=== PATIENT | female | born 1970 | race African-American/Black ===

== ENCOUNTER 2018-01-03 20:48 | Emergency (ER) | payer OTHER ==
--- NOTE | 2018-01-03 21:14 | PDOC ---
Rapid Medical Evaluation Time Seen by Provider: 01/03/18 21:07 Medical Evaluation: Allergies Allergy/AdvReac Type Severity Reaction Status Date / Time Sulfa (Sulfonamide Allergy Verified 01/26/16 13:28 Antibiotics) 01/03/18 21:07 I have performed a brief in-person evaluation of this patient. The patient presents with a chief complaint of: Intermittent RUE numbness over 1 month Pertinent physical exam findings: CN2-12 grossly intact. Full sensation to BUE. Photo Print Specialist 5/5. I have ordered the following: nothing The patient will proceed to the ED for further evaluation. Discharge Disposition - Diagnosis Right arm numbness - Referrals - Patient Instructions - Post Discharge Activity
[2018-01-03 21:16] VITALS: BMI 30.9
[2018-01-03] MEDS ORDERED: KETOROLAC TROMETHAMINE 60 MG/2 ML VIAL IM ONE (21:42)
[2018-01-03] MEDS ORDERED: KETOROLAC TROMETHAMINE 60 MG/2 ML VIAL ONE (21:56)
--- NOTE | 2018-01-03 22:32 | PDOC ---
History of Present Illness - General History Source: Patient Exam Limitations: No Limitations - History of Present Illness Initial Comments: 01/03/18 22:32 The patient is a 47 year old female, with a significant past medical history of hypertension, who presents to the emergency department with, approx. one month of numbness and tingling in the right upper extremity. The patient reports the numbness and tingling ranges from below the right shoulder down to her wrist but does not affect her right hand. The patient reports the right upper extremity numbness and tingling is worse in the morning after waking up and reports the right arm numbness has been interfering with her sleep. The patient reports she does a lot of repetitive motions at work with her hands. She denies recent injury or trauma. She denies recent fevers, chills, headache or dizziness. She denies recent nausea, vomit, diarrhea or constipation. She denies recent dysuria, frequency, urgency or hematuria. She denies recent chest pain or shortness of breath. Allergies: Sulfa (sulfonamide antibiotics) <Arun Estes - Last Filed: 01/03/18 22:32> <Chaya John - Last Filed: 01/03/18 23:32> - General Chief Complaint: Pain Stated Complaint: RT ARM NUMBNESS Time Seen by Provider: 01/03/18 21:07 Past History <Arun Estes - Last Filed: 01/03/18 22:32> - Past Medical History COPD: No HTN: Yes Kidney Stones: Yes - Surgical History Abdominal Surgery: Yes (SBO) - Immunization History Immunization Up to Date: Yes - Suicide/Smoking/Psychosocial Hx Smoking Status: No Smoking History: Never smoked Have you smoked in the past 12 months: No Number of Cigarettes Smoked Daily: 0 Cigars Per Day: 0 Information on smoking cessation initiated: No Hx Alcohol Use: No Drug/Substance Use Hx: No Substance Use Type: None <Chaya John - Last Filed: 01/03/18 23:32> - Past Medical History Allergies/Adverse Reactions: Allergies Allergy/AdvReac Type Severity Reaction Status Date / Time Sulfa (Sulfonamide Allergy Verified 01/03/18 21:11 Antibiotics) Home Medications: Ambulatory Orders Lamotrigine [Lamictal] 300 mg PO DAILY 01/07/14 Amlodipine Besylate [Norvasc -] 5 mg PO DAILY #30 tablet 12/26/14 Citalopram Hydrobromide [Celexa -] 20 mg PO DAILY 12/26/14 Cyclobenzaprine HCl [Flexeril 10 mg] 10 mg PO HS PRN #7 tablet 01/03/18 Ibuprofen 600 mg PO QID PRN #20 tablet 01/03/18 Lisinopril [Prinivil] 20 mg PO DAILY 01/03/18 Review of Systems - Review of Systems Comments:: 01/03/18 22:33 CONSTITUTIONAL: Absent: fever, no chills, no fatigue EYES: Absent: visual changes ENT: Absent: ear pain, no sore throat CARDIOVASCULAR: Absent: chest pain, no palpitations RESPIRATORY: Absent: cough, no SOB GI: Absent: abdominal pain, no nausea, no vomiting, no constipation, no diarrhea GENITOURINARY: Absent: dysuria, no frequency, no hematuria MUSKULOSKELETAL: Absent: back pain, no arthralgia, no myalgia SKIN: Absent: rash NEURO: Present: +Right arm numbness and tingling. Absent: headache <Arun Estes - [place] Filed: 01/03/18 22:32> *Physical Exam - Vital Signs Last Vital Signs Temp Pulse Resp BP Pulse Ox 98.4 F 72 20 144/111 100 01/03/18 21:11 01/03/18 21:11 01/03/18 21:11 01/03/18 21:11 01/03/18 21:11 - Physical Exam Comments: 01/03/18 22:33 GENERAL: Well-appearing, well-nourished. No apparent distress. HEENT: Normocephalic, atraumatic. PERRL, EOM intact. CARDIOVASCULAR: Normal S1, S2. Regular rate and rhythm. PULMONARY: Clear to auscultation bilaterally. ABDOMEN: Soft, non-distended, non-tender. EXTREMITIES: +Tenderness to the right trapezius muscle area. Normal ROM in all four extremities. No gross deformities. SKIN: Warm, dry. No rash NEUROLOGICAL: No focal neurological deficits. <Arun Estes - Last Filed: 01/03/18 22:32> - Vital Signs Last Vital Signs Temp Pulse Resp BP Pulse Ox 98.4 F 72 20 144/111 100 01/03/18 21:11 01/03/18 21:11 01/03/18 21:11 01/03/18 21:11 01/03/18 21:11 <Chaya John - Last Filed: 01/03/18 23:32> ED Treatment Course - Medications Given in the ED: ED Medications Discontinued Medications Generic Name Dose Route Start Last Admin Trade Name Freq PRN Reason Stop Dose Admin Ketorolac Tromethamine 60 mg 01/03/18 21:42 01/03/18 21:59 Toradol Injection - IM 01/03/18 21:43 60 mg ONCE ONE Administration <Arun Estes - Last Filed: 01/03/18 22:32> - Medications Given in the ED: ED Medications Discontinued Medications Generic Name Dose Route Start Last Admin Trade Name Freq PRN Reason Stop Dose Admin Ketorolac Tromethamine 60 mg 01/03/18 21:42 01/03/18 21:59 Toradol Injection - IM 01/03/18 21:43 60 mg ONCE ONE Administration <Chaya John - Last Filed: 01/03/18 23:32> Medical Decision Making - Medical Decision Making 01/03/18 23:29 47-year-old female presents with intermittent numbness, tingling and arm pain for approximately 1 month. Associate worse with certain positions. She denies any recent trauma. She denies any chest pain, shortness of breath, nausea, vomiting, fever or chills. The tingling that she experiences is from the mid shaft of the ulna down to her forearm. She has no hand involvement. Objectively, her sensation is intact, 2. proprioception intact, cap refill less than 2 seconds, hand grasp 5 out of 5. She is able to fully extend her right arm, she has no elbow pain, and she has no wrist pain. Symptoms seem to be worse when she wakes in the morning. Patient given NSAID and referred to orthopedic <Chaya John - Last Filed: 01/03/18 23:32> *DC/Admit/Observation/Transfer - Attestations Scribe Attestion: 01/03/18 22:34 Documentation prepared by Arun Estes, acting as medical cost consultant for Chaya John MD. <Arun Estes - Last Filed: 01/03/18 22:32> <Chaya John - Last Filed: 01/03/18 23:32> Diagnosis at time of Disposition: Right arm numbness, Right arm pain - Discharge Dispostion Disposition: HOME Condition at time of disposition: Stable - Prescriptions Prescriptions: Cyclobenzaprine HCl [Flexeril 10 mg] 10 mg PO HS PRN #7 tablet PRN Reason: Muscle Spasms Ibuprofen 600 mg PO QID PRN #20 tablet PRN Reason: Pain Level 6-10 - Referrals Referrals: Rosanne Deng MD [Primary Care Provider] - Juan C Mcnair MD [Staff Physician] - Deshawn Grace MD [Staff Physician] - Homer Hernandez MD [Staff Physician] - - Patient Instructions Printed Discharge Instructions: DI for Arm Pain, DI for Numbness/tingling Additional Instructions: please pickler helper your medications at your [facility] pharmacy please follow up with the orthopedist return for any worsening symptoms - Post Discharge Activity
[2018-01-03 23:09] VITALS: BP 154/95; PULSE 69; TEMP 98.1
[2018-01-03] MEDS ORDERED: CYCLOBENZAPRINE HCL 10 MG TABLET (FP) PO ONE (23:25)
[2018-01-03] MEDS ORDERED: CYCLOBENZAPRINE HCL 10 MG TABLET (FP) ONE (23:27)
== END 2018-01-03 23:33 | disposition home or self-care (01) ==
LOC: JER 20:48
PROC: 3E0233Z Introduction of Anti-inflammatory into Muscle, Percutaneous Approach (ICD-10-PCS; principal; 2018-01-03)
DX: M79.601 Pain in right arm (principal)
CPT/HCPCS: 99282-25

== ENCOUNTER 2018-08-17 01:12 | Emergency (ER) | payer OTHER ==
[2018-08-17 03:06] VITALS: BMI 31.9
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
[2018-08-17] MEDS ORDERED: ACETAMINOPHEN 325 MG TABLET (FP) PO ONE (07:09)
[2018-08-17] MEDS ORDERED: ACETAMINOPHEN 325 MG TABLET (FP) ONE (08:00)
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
[2018-08-17 09:26] VITALS: BP 142/99; PULSE 71; TEMP 98.1
== END 2018-08-17 09:27 | disposition home or self-care (01) ==
LOC: JER 01:12
DX: G44.319 Acute post-traumatic headache, not intractable (principal); S00.83XA Contusion of other part of head, initial encounter; Y04.2XXA Assault by strike against or bumped into by another person, initial encounter; Y93.89 Activity, other specified; Y92.810 Car as the place of occurrence of the external cause; Y99.8 Other external cause status; Y07.03 Male partner, perpetrator of maltreatment and neglect
CPT/HCPCS: 70450-TC; 70486-TC; 84703; 99281-25

== ENCOUNTER 2018-08-24 19:05 | Emergency (ER) | payer OTHER ==
[2018-08-24 19:46] VITALS: BP 145/84; PULSE 73; TEMP 98.5; BMI 31.6
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
--- NOTE | 2018-08-24 20:12 | PDOC ---
History of Present Illness - General Chief Complaint: Eye Problem Stated Complaint: EYE PROBLEM Time Seen by Provider: 08/24/18 19:44 History Source: Patient Exam Limitations: No Limitations - History of Present Illness Initial Comments: 08/24/18 20:07 08/24/18 20:12 Past History - Past Medical History Allergies/Adverse Reactions: Allergies Allergy/AdvReac Type Severity Reaction Status Date / Time Sulfa (Sulfonamide Allergy Verified 08/24/18 19:46 Antibiotics) Home Medications: Ambulatory Orders Lamotrigine [Lamictal] 300 mg PO DAILY 01/07/14 Amlodipine Besylate [Norvasc -] 5 mg PO DAILY #30 tablet 12/26/14 Citalopram Hydrobromide [Celexa -] 20 mg PO DAILY 12/26/14 Cyclobenzaprine HCl [Flexeril 10 mg] 10 mg PO HS PRN #7 tablet 01/03/18 Ibuprofen 600 mg PO QID PRN #20 tablet 01/03/18 Lisinopril [Prinivil] 20 mg PO DAILY 01/03/18 COPD: No HTN: Yes Kidney Stones: Yes - Surgical History Abdominal Surgery: Yes (SBO) - Immunization History Immunization Up to Date: Yes - Suicide/Smoking/Psychosocial Hx Smoking Status: No Smoking History: Never smoked Have you smoked in the past 12 months: No Number of Cigarettes Smoked Daily: 0 Cigars Per Day: 0 Hx Alcohol Use: No Drug/Substance Use Hx: No Substance Use Type: None *Physical Exam - Vital Signs Last Vital Signs Temp Pulse Resp BP Pulse Ox 98.5 F 73 18 145/84 99 08/24/18 19:44 08/24/18 19:44 08/24/18 19:44 08/24/18 19:44 08/24/18 19:44 Medical Decision Making - Medical Decision Making 08/24/18 20:08 08/24/18 20:11 *DC/Admit/Observation/Transfer Diagnosis at time of Disposition: Red eye - Referrals Referrals: Rosanne Deng MD [Primary Care Provider] - - Patient Instructions - Post Discharge Activity
[2018-08-24] MEDS ORDERED: TETRACAINE 0.5% OPHTH SOLN 2 ML BOTTLE ONE (20:38)
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
== END 2018-08-24 20:58 | disposition home or self-care (01) ==
LOC: JERFT 19:05
DX: S05.8X1A Other injuries of right eye and orbit, initial encounter (principal); I10 Essential (primary) hypertension; Y04.2XXA Assault by strike against or bumped into by another person, initial encounter; Y93.89 Activity, other specified; Y92.89 Other specified places as the place of occurrence of the external cause; Y99.8 Other external cause status
CPT/HCPCS: 99281-25

== ENCOUNTER 2018-12-08 14:37 | Emergency (ER) | payer OTHER ==
[2018-12-08 14:58] VITALS: BP 150/98; PULSE 82; TEMP 98.3; BMI 33.3
[2018-12-08] MEDS ORDERED: ALBUTEROL SO4 2.5/IPRATROPIUM 0.5 INH SOL 3 ML VIAL.NEB. NEB ONE ×2 (15:12→15:21)
--- NOTE | 2018-12-08 15:17 | PDOC ---
History of Present Illness - General Chief Complaint: Cold Symptoms Stated Complaint: CHEST PAIN Time Seen by Provider: 12/08/18 15:00 History Source: Patient Exam Limitations: Clinical Condition - History of Present Illness Initial Comments: 12/08/18 15:13 Patient with history of hypertension patient with history of hypertension present with complaint of 2 weeks history of persistent dry cough, nasal congestion and intermittent shortness of breath. Patient reported sister with diagnoses of pneumonia 3 days ago.Patient report smoking one pack of cigarettes a day and wishes to stop smoking. Patient denies fever, chills or shortness of breath now. Patient denies chest pain, dizziness, nausea or vomiting. Patient denies any other symptoms 12/08/18 15:44 Timing/Duration: other (2 weeka) Past History - Past Medical History Allergies/Adverse Reactions: Allergies Allergy/AdvReac Type Severity Reaction Status Date / Time Sulfa (Sulfonamide Allergy Verified 12/08/18 14:56 Antibiotics) Home Medications: Ambulatory Orders Lamotrigine [Lamictal] 300 mg PO DAILY 01/07/14 Amlodipine Besylate [Norvasc -] 5 mg PO DAILY #30 tablet 12/26/14 Citalopram Hydrobromide [Celexa -] 20 mg PO DAILY 12/26/14 Lisinopril [Prinivil] 20 mg PO DAILY 01/03/18 Albuterol Sulfate Inhaler - [Ventolin Hfa Inhaler -] 2 inh PO Q4H #1 inh Azithromycin [Zithromax 250mg Tablets -] 250 mg PO UTDICT #6 tab 12/08/18 Benzonatate [Tessalon Pearls -] 100 mg PO TID PRN #21 capsule 12/08/18 Loratadine 10 mg PO DAILY #10 capsule 12/08/18 Prednisone [Deltasone] 20 mg PO BID 5 Days #10 tablet 12/08/18 Varenicline Tartrate [Chantix] 1 each PO BID #2 tab.ds.pk 12/08/18 COPD: No HTN: Yes Kidney Stones: Yes - Surgical History Abdominal Surgery: Yes (SBO) - Immunization History Immunization Up to Date: Yes - Suicide/Smoking/Psychosocial Hx Smoking Status: No Smoking History: Current every day smoker Have you smoked in the past 12 months: No Number of Cigarettes Smoked Daily: 0 Cigars Per Day: 0 Information on smoking cessation initiated: No Hx Alcohol Use: No Drug/Substance Use Hx: No Substance Use Type: None Review of Systems - Review of Systems Able to Perform ROS?: Yes Is the patient limited Haitian proficient: No Constitutional: No: Chills, Fever, Malaise HEENTM: Yes: Symptoms Reported, See HPI, Nose Congestion. No: Eye Pain, Blurred Vision, Tearing, Recent change in vision, Double Vision, Cataracts, Ear Pain, Ocular Prothesis, Ear Discharge, Nose Pain, Tinnitus, Nose Bleeding, Hearing Loss, Throat Pain, Throat Swelling, Mouth Pain, Dental Problems, Difficulty Swallowing, Mouth Swelling, Other Respiratory: Yes: Symptoms reported, See HPI, Cough, Shortness of Breath ( intermittent), Wheezing. No: Orthopnea, SOB with Exertion, SOB at Rest, Stridor , Productive cough, Hemoptysis, Other Cardiac (ROS): No: Symptoms Reported, See HPI, Chest Pain, Edema, Irregular Heart Rate, Lightheadedness, Palpitations, Syncope, Chest Tightness, Other ABD/GI: No: Nausea, Vomiting All Other Systems: Reviewed and Negative *Physical Exam - Vital Signs Last Vital Signs Temp Pulse Resp BP Pulse Ox 98.3 F 82 16 150/98 99 12/08/18 14:56 12/08/18 14:56 12/08/18 14:56 12/08/18 14:56 12/08/18 14:56 - Physical Exam Comments: 12/08/18 15:15 GENERAL: Well developed, well nourished. Awake and alert. No acute distress. HEENT: Normocephalic, atraumatic. PERRLA, EOMI. No conjunctival pallor. Sclera are non-icteric. Moist mucous membranes. Oropharynx is clear. NECK: Supple. Full ROM. CARDIOVASCULAR: Regular rate and rhythm. No murmurs, rubs, or gallops. Distal pulses are 2+ and symmetric. PULMONARY: Mild diffuse wheezing.No evidence of respiratory distress. No rales or rhonchi. ABDOMINAL: Soft. Non-tender. Non-distended. No rebound or guarding. No organomegaly. Normoactive bowel sounds. MUSCULOSKELETAL Normal range of motion at all joints. EXTREMITIES: No cyanosis. No clubbing. SKIN: Warm and dry. Normal capillary refill. No rashes. No jaundice. NEUROLOGICAL: Alert, awake, appropriate. Gait is normal without ataxia. PSYCHIATRIC: Cooperative. Good eye contact. Appropriate mood General Appearance: Yes: Nourished, Appropriately Dressed. No: Apparent Distress Moderate Sedation - Procedure Monitoring Vital Signs: Procedure Monitoring Vital Signs Temperature 98.3 F 12/08/18 14:56 Pulse Rate 82 12/08/18 14:56 Respiratory Rate 16 12/08/18 14:56 Blood Pressure 150/98 12/08/18 14:56 O2 Sat by Pulse Oximetry (%) 99 12/08/18 14:56 ED Treatment Course - RADIOLOGY Radiology Studies Ordered: Category Date Time Status CHEST PA & LAT [RAD] Stat Radiology 12/08/18 15:06 Ordered Medical Decision Making - Medical Decision Making 12/08/18 15:15 Patient with history of hypertension present with complaint of 2 weeks history of persistent nonproductive cough, nasal congestion and intermittent shortness of breath. Patient reported exposure to sibling with pneumonia. Exam significant for mild diffuse wheezing with no acute respiratory distress . No rales or rhonchi on exam. Chest x-ray ordered to rule out pneumonia. Nebulizer treatment with Atrovent and albuterol ordered. Treat based on imaging results 12/08/18 15:44 Chest x-ray shows no acute infiltrate. Patient is stable for outpatient treatment for bronchitis and prescription for Chantix to help with smoking cessation. Patient educated on smoking cessation for 5 minutes. Patient to follow-up with primary care to continue smoking cessation. *DC/Admit/Observation/Transfer Diagnosis at time of Disposition: Bronchitis, Cough URI (upper respiratory infection) Qualifiers: URI type: unspecified URI Qualified Code(s): J06.9 - Acute upper respiratory infection, unspecified Nicotine dependence Qualifiers: Nicotine product type: cigarettes Substance use status: uncomplicated Qualified Code(s): F17.210 - Nicotine dependence, cigarettes, uncomplicated - Discharge Dispostion Disposition: HOME Condition at time of disposition: Stable Decision to Admit order: No - Prescriptions Prescriptions: Albuterol Sulfate Inhaler - [Ventolin Hfa Inhaler -] 2 inh PO Q4H #1 inh Azithromycin [Zithromax 250mg Tablets -] 250 mg PO UTDICT #6 tab Benzonatate [Tessalon Pearls -] 100 mg PO TID PRN #21 capsule PRN Reason: Cough Loratadine 10 mg PO DAILY #10 capsule Prednisone [Deltasone] 20 mg PO BID 5 Days #10 tablet Varenicline Tartrate [Chantix] 1 each PO BID #2 tab.ds.pk - Referrals Referrals: Rosanne Deng MD [Primary Care Provider] - - Patient Instructions Printed Discharge Instructions: DI for Acute Bronchitis Additional Instructions: Your chest x-ray shows no pneumonia. Take medications as prescribed. Follow-up with primary care for smoking cessation follow-up. - Post Discharge Activity
== END 2018-12-08 15:46 | disposition home or self-care (01) ==
LOC: JERFT 14:37
PROC: 3E0F7GC Introduction of Other Therapeutic Substance into Respiratory Tract, Via Natural or Artificial Opening (ICD-10-PCS; principal; 2018-12-08)
DX: J06.9 Acute upper respiratory infection, unspecified (principal); F17.210 Nicotine dependence, cigarettes, uncomplicated
CPT/HCPCS: 71046-TC-FY; 94640; 99281-25

== ENCOUNTER 2019-05-08 20:09 | Emergency (ER) | payer OTHER | END 2019-05-08 21:35 | disposition home or self-care (01) | LOC: JERFT 20:09 ==

== ENCOUNTER 2022-03-26 10:28 | Emergency (ER) | payer OTHER ==
[2022-03-26 10:43] VITALS: BP 100/64; PULSE 64; TEMP 97.3; BMI 29.5
[2022-03-28 14:07] LABS: SARS-CoV-2 NAA Detected (Not Detected)
== END 2022-03-26 12:30 | disposition home or self-care (01) ==
LOC: JER 10:28
DX: U07.1 COVID-19 (principal)
CPT/HCPCS: 99283-25; C9803-CS; U0003; U0005

== ENCOUNTER 2022-04-22 17:11 | Emergency (ER) | payer OTHER ==
[2022-04-22 17:30] VITALS: BP 133/89; PULSE 79; TEMP 99.1; BMI 29.8
== END 2022-04-22 18:50 | disposition home or self-care (01) ==
LOC: JER 17:11
DX: R05.9 Cough, unspecified (principal); R09.81 Nasal congestion
CPT/HCPCS: 0241U-QW; 99283-25

== ENCOUNTER 2022-08-10 10:58 | Emergency (ER) | payer OTHER ==
[2022-08-10 11:04] VITALS: BP 135/84; PULSE 61; RESP 16; TEMP 97.7; BMI 27.1
[2022-08-10] MEDS ORDERED: ONDANSETRON 4 MG/2 ML VIAL IVPUSH ONE (12:02)
[2022-08-10] MEDS ORDERED: SODIUM CHLORIDE 0.9% 500 ML INFUS.BAG IV ONE (12:02)
[2022-08-10] MEDS ORDERED: KETOROLAC TROMETHAMINE 30 MG/1 ML VIAL IVPUSH ONE (12:02)
[2022-08-10] MEDS ORDERED: ACETAMINOPHEN 1000 MG/100 ML BAG IVPB ONE (12:59)
[2022-08-10 13:17] LABS: BASO % 0.3 % (0-2.0); EOS % 3.7 % (0-4.5); HEMATOCRIT 43.9 % (32.4-45.2); HEMOGLOBIN 14.2 GM/dL (10.7-15.3); MCH 29.8 pg (25.7-33.7); MCHC 32.4 g/dl (32.0-36.0); MEAN CELL VOLUME 92.2 fl (80-96); MEAN PLT VOLUME 7.3 fl (7.5-11.1); MONO % 7.2 % (3.8-10.2); NEUT % 65.8 % (42.8-82.8); PLATELET COUNT 340 10^3/uL (134-434); RBC 4.76 M/mm3 (3.60-5.2); RDW 14.4 % (11.6-15.6); WHITE BLOOD COUNT 7.9 K/mm3 (4.0-10.0)
[2022-08-10 13:29] LABS: ALBUMIN 3.7 g/dl (3.4-5.0); BLOOD UREA NITROGEN 3.5 mg/dL (7-18); CALCIUM 10.7 mg/dL (8.5-10.1)
[2022-08-10 13:33] LABS: CREATININE 0.8 mg/dL (0.55-1.3); TOT PROT 7.5 g/dl (6.4-8.2)
[2022-08-10 13:34] LABS: BILIRUBIN,TOTAL 0.7 mg/dL (0.2-1)
== END 2022-08-10 15:46 | disposition left against medical advice (07) ==
LOC: JER 10:58
DX: K81.0 Acute cholecystitis (principal)
CPT/HCPCS: 0241U-QW; 36415; 76705-TC; 80053; 83690; 84703; 85025; 99284-25

== ENCOUNTER 2022-08-10 21:19 | Observation (INO) | payer OTHER ==
[2022-08-10 21:34] VITALS: BMI 26.6
[2022-08-10] MEDS ORDERED: KETOROLAC TROMETHAMINE 30 MG/1 ML VIAL IVPUSH ONE (23:11)
[2022-08-10] MEDS ORDERED: POTASSIUM CHLORIDE 10 MEQ in SODIUM CHLORIDE 1,000 ML IVPB SCH (23:15)
[2022-08-10] MEDS ORDERED: SODIUM CHLORIDE 1,000 ML IV SCH (23:15)
[2022-08-11] MEDS ORDERED: KETOROLAC TROMETHAMINE 30 MG/1 ML VIAL ONE ×2 (00:07→00:08)
[2022-08-11] MEDS ORDERED: ACETAMINOPHEN 1000 MG/100 ML BAG IVPB PRN (01:25)
[2022-08-11] MEDS ORDERED: LITHIUM CARBONATE 300 MG CAPSULE PO SCH ×4 (01:30→22:00)
[2022-08-11] MEDS ORDERED: hydrALAZINE HCL 20 MG/ML VIAL IVPUSH ONE (01:32)
[2022-08-11] MEDS ORDERED: SODIUM CHLORIDE 1,000 ML IV SCH (01:45)
[2022-08-11] MEDS ORDERED: hydrALAZINE HCL 20 MG/ML VIAL ONE (03:24)
[2022-08-11] MEDS ORDERED: TRIMETHOBENZAMIDE HCL 200MG/2ML INJ IM PRN ×2 (03:39→14:01)
[2022-08-11] MEDS ORDERED: MELATONIN 5 MG TABLETS PO PRN ×2 (03:39→14:01)
[2022-08-11 07:08] LABS: BASO % 0.4 % (0-2.0); EOS % 4.5 % (0-4.5); HEMATOCRIT 38.7 % (32.4-45.2); HEMOGLOBIN 12.9 GM/dL (10.7-15.3); LYMPH % 34.9 % (8-40); MCH 30.6 pg (25.7-33.7); MCHC 33.3 g/dl (32.0-36.0); NEUT % 51.2 % (42.8-82.8); PLATELET COUNT 295 10^3/uL (134-434); RDW 14.5 % (11.6-15.6); WHITE BLOOD COUNT 6.5 K/mm3 (4.0-10.0)
[2022-08-11 07:18] LABS: BLOOD UREA NITROGEN 3.1 mg/dL (7-18); CALCIUM 9.6 mg/dL (8.5-10.1)
[2022-08-11 07:19] LABS: ALBUMIN 3.1 g/dl (3.4-5.0); MAGNESIUM 2.3 mg/dL (1.8-2.4)
[2022-08-11 07:22] LABS: CREATININE 0.7 mg/dL (0.55-1.3); PHOSPHOROUS 2.9 mg/dL (2.5-4.9)
[2022-08-11 07:23] LABS: BILIRUBIN,TOTAL 0.5 mg/dL (0.2-1); TOT PROT 6.2 g/dl (6.4-8.2)
[2022-08-11] MEDS ORDERED: LISINOPRIL 20 MG TABLET ONE (09:43)
[2022-08-11] MEDS ORDERED: amLODIPine BESYLATE 10 MG TABLET (FP) ONE (09:43)
[2022-08-11] MEDS ORDERED: amLODIPine BESYLATE 10 MG TABLET (FP) PO SCH (10:00)
[2022-08-11] MEDS ORDERED: LISINOPRIL 20 MG TABLET PO SCH (10:00)
[2022-08-11] MEDS ORDERED: lamoTRIgine 100 MG TABLET PO SCH (10:00)
[2022-08-11] MEDS ORDERED: VARENICLINE TARTRATE 1 MG TAB PO SCH ×2 (10:00)
[2022-08-11] MEDS ORDERED: lamoTRIgine 25 MG TABLET ONE (10:34)
[2022-08-11] MEDS ORDERED: lamoTRIgine 100 MG TABLET ONE (10:34)
[2022-08-11] MEDS ORDERED: LIDOCAINE HCL 1%, 10 MG/ML (20ML VIAL) ONE (10:55)
[2022-08-11] MEDS ORDERED: BUPIVACAINE HCL/PF 0.5% (5MG/ML) 10 ML VIAL ONE (10:55)
[2022-08-11] MEDS ORDERED: ROCURONIUM BROMIDE 50 MG/5 ML SYRINGE ONE (11:32)
[2022-08-11] MEDS ORDERED: PROPOFOL 20 ML ONE (11:32)
[2022-08-11] MEDS ORDERED: LIDOCAINE HCL 2% 100 MG/5 ML DISP.SYRIN ONE (11:32)
[2022-08-11] MEDS ORDERED: SUCCINYLCHOLINE CHLORIDE 200 MG/10 ML SYRINGE ONE (11:32)
[2022-08-11] MEDS ORDERED: MIDAZOLAM HCL 2 MG/2 ML SINGLE DOSE VIAL ONE (11:33)
[2022-08-11] MEDS ORDERED: ceFAZolin SODIUM 1 GM VIAL ONE (11:52)
[2022-08-11] MEDS ORDERED: DEXAMETHASONE SOD PHOSPHATE 4 MG/1 ML VIAL ONE (11:52)
[2022-08-11] MEDS ORDERED: ceFAZolin SODIUM 1 GM VIAL IVPB ONE (11:55)
[2022-08-11] MEDS ORDERED: BUPIVACAINE HCL/PF 0.5% (5MG/ML) 10 ML VIAL NR ONE ×2 (12:10)
[2022-08-11] MEDS ORDERED: LIDOCAINE HCL 1%, 10 MG/ML (20ML VIAL) NR ONE (12:10)
[2022-08-11] MEDS ORDERED: NEOSTIGMINE METHYLSULFATE 0.5 MG/ML - 10 ML MDV ONE (12:45)
[2022-08-11] MEDS ORDERED: GLYCOPYRROLATE 0.2 MG/1 ML VIAL ONE ×2 (12:45)
[2022-08-11] MEDS ORDERED: ACETAMINOPHEN 1000 MG/100 ML BAG IVPB ONE (13:23)
[2022-08-11] MEDS ORDERED: PROMETHAZINE HCL 25 MG/1 ML VIAL IVPUSH PRN (13:23)
[2022-08-11] MEDS ORDERED: LACTATED RINGERS SOLUTION 1,000 ML IV SCH ×2 (13:30→14:01)
[2022-08-11] MEDS ORDERED: ACETAMINOPHEN INJECTION 100 ML IVPB ONE (13:36)
[2022-08-11] MEDS ORDERED: oxyCODONE HCL 5 MG TABLET PO PRN (13:53)
[2022-08-11] MEDS ORDERED: FLUTICASONE PROP 0.05% 16 GM NASAL SPRAY NS PRN (15:52)
[2022-08-11] MEDS ORDERED: KETOROLAC TROMETHAMINE 15 MG/ML VIAL IVPUSH PRN (20:00)
[2022-08-11] MEDS: ACETAMINOPHEN 500 MG TABLET (FP) PO SCH (21:20)
[2022-08-11] MEDS ORDERED: LITHIUM CARBONATE 450 MG TABLET.ER PO SCH (22:00)
[2022-08-11] MEDS: oxyCODONE HCL 5 MG TABLET PO PRN (22:17)
[2022-08-12] MEDS: ACETAMINOPHEN 500 MG TABLET (FP) PO SCH ×2 (01:16→06:38)
[2022-08-12] MEDS: oxyCODONE HCL 5 MG TABLET PO PRN (05:03)
[2022-08-12 08:04] VITALS: PULSE 52
[2022-08-12 09:59] LABS: BASO % 0.2 % (0-2.0); EOS % 0.4 % (0-4.5); HEMATOCRIT 38.4 % (32.4-45.2); HEMOGLOBIN 12.5 GM/dL (10.7-15.3); LYMPH % 19.6 % (8-40); MCH 29.8 pg (25.7-33.7); MCHC 32.5 g/dl (32.0-36.0); MEAN CELL VOLUME 91.7 fl (80-96); MEAN PLT VOLUME 7.3 fl (7.5-11.1); MONO % 6.1 % (3.8-10.2); NEUT % 73.7 % (42.8-82.8); PLATELET COUNT 300 10^3/uL (134-434); RBC 4.18 M/mm3 (3.60-5.2); RDW 14.1 % (11.6-15.6); WHITE BLOOD COUNT 10.6 K/mm3 (4.0-10.0)
[2022-08-12] MEDS ORDERED: VARENICLINE TARTRATE 1 MG TAB PO SCH (10:00)
[2022-08-12] MEDS ORDERED: LISINOPRIL 20 MG TABLET PO SCH (10:00)
[2022-08-12] MEDS ORDERED: CITALOPRAM HYDROBROMIDE 10 MG TABLET PO SCH (10:00)
[2022-08-12] MEDS ORDERED: lamoTRIgine 100 MG TABLET PO SCH (10:00)
[2022-08-12] MEDS ORDERED: traZODone HCL 100 MG TABLET (FP) PO SCH (10:00)
[2022-08-12] MEDS ORDERED: amLODIPine BESYLATE 10 MG TABLET (FP) PO SCH (10:00)
[2022-08-12] MEDS ORDERED: LITHIUM CARBONATE 300 MG CAPSULE PO SCH (10:00)
[2022-08-12 12:08] LABS: MAGNESIUM 2.1 mg/dL (1.8-2.4)
[2022-08-12 12:13] LABS: ALBUMIN 3.2 g/dl (3.4-5.0)
[2022-08-12 12:15] LABS: TOT PROT 6.5 g/dl (6.4-8.2)
[2022-08-12 12:18] LABS: BLOOD UREA NITROGEN 5.6 mg/dL (7-18)
[2022-08-12 12:21] LABS: BILIRUBIN,DIRECT 0.2 mg/dL (0.0-0.2); PHOSPHOROUS 3.9 mg/dL (2.5-4.9)
[2022-08-12 12:22] LABS: BILIRUBIN,TOTAL 0.9 mg/dL (0.2-1)
[2022-08-12 12:36] VITALS: BP 134/96; RESP 18; TEMP 98.1
== END 2022-08-12 17:07 | disposition home or self-care (01) ==
LOC: JER 21:19 → JERBED 22:34 → J5S 08-11 16:38
PROVIDERS: ADMIT Internal Medicine; ATTEND Internal Medicine
PROC: 0FT44ZZ Resection of Gallbladder, Percutaneous Endoscopic Approach (ICD-10-PCS; principal; 2022-08-10)
PROC: 3E03329 Introduction of Other Anti-infective into Peripheral Vein, Percutaneous Approach (ICD-10-PCS; 2022-08-10)
PROC: 3E033NZ Introduction of Analgesics, Hypnotics, Sedatives into Peripheral Vein, Percutaneous Approach (ICD-10-PCS; 2022-08-10)
PROC: 3E033NZ Introduction of Analgesics, Hypnotics, Sedatives into Peripheral Vein, Percutaneous Approach (ICD-10-PCS; 2022-08-10)
PROC: 3E0337Z Introduction of Electrolytic and Water Balance Substance into Peripheral Vein, Percutaneous Approach (ICD-10-PCS; 2022-08-10)
DX: K80.20 Calculus of gallbladder without cholecystitis without obstruction (principal); F31.9 Bipolar disorder, unspecified; D25.9 Leiomyoma of uterus, unspecified; I10 Essential (primary) hypertension; Z88.2 Allergy status to sulfonamides; Z88.8 Allergy status to other drugs, medicaments and biological substances; F17.210 Nicotine dependence, cigarettes, uncomplicated
CPT/HCPCS: 36415; 74177-TC; 80053; 80076; 83735; 84100; 84439; 84443; 85025; 86140; 86850; 86900; 86901; 87086; 88304-TC; 93005; 93010; 94760; 96361; 96374; 96375; 99285-25; C9803-CS; G0378; Q9967; U0003; U0005

== ENCOUNTER 2022-08-31 04:57 | Day surgery (SDC) | payer OTHER ==
[2022-08-30 12:05] VITALS: BMI 26.6
[2022-08-31] MEDS ORDERED: MIDAZOLAM HCL 2 MG/2 ML SINGLE DOSE VIAL ONE (10:30)
[2022-08-31 11:39] VITALS: BP 105/60; PULSE 56; RESP 19; TEMP 98
== END 2022-08-31 12:14 | disposition home or self-care (01) ==
LOC: JASU-ENDO 04:57
PROVIDERS: ATTEND Student in an Organized Health Care Education/Training Program
PROC: 0DB78ZX Excision of Stomach, Pylorus, Via Natural or Artificial Opening Endoscopic, Diagnostic (ICD-10-PCS; 2022-08-31)
PROC: 0DB68ZX Excision of Stomach, Via Natural or Artificial Opening Endoscopic, Diagnostic (ICD-10-PCS; 2022-08-31)
PROC: 0DB98ZX Excision of Duodenum, Via Natural or Artificial Opening Endoscopic, Diagnostic (ICD-10-PCS; principal; 2022-08-31 10:00)
DX: K29.50 Unspecified chronic gastritis without bleeding (principal); B96.81 Helicobacter pylori [H. pylori] as the cause of diseases classified elsewhere; K29.80 Duodenitis without bleeding; K20.90 Esophagitis, unspecified without bleeding
CPT/HCPCS: 88305-TC; 88342-TC

== ENCOUNTER 2022-12-14 14:47 | Emergency (ER) | payer OTHER ==
[2022-12-14 15:04] VITALS: BP 156/90; PULSE 64; RESP 20; TEMP 98.4; BMI 25.7
[2022-12-14] MEDS ORDERED: ACETAMINOPHEN 500 MG TABLET (FP) PO ONE (15:23)
[2022-12-14] MEDS ORDERED: ACETAMINOPHEN 500 MG TABLET (FP) ONE (15:30)
== END 2022-12-14 16:19 | disposition home or self-care (01) ==
LOC: JERFT 14:47
DX: M25.551 Pain in right hip (principal)
CPT/HCPCS: 73521-TC-FY; 99283-25

== ENCOUNTER 2022-12-28 11:08 | Emergency (ER) | payer OTHER ==
[2022-12-28 11:17] VITALS: BP 146/85; PULSE 69; RESP 19; TEMP 97.8; BMI 25.7
[2022-12-28] MEDS ORDERED: KETOROLAC TROMETHAMINE 30 MG/1 ML VIAL IM ONE (12:09)
[2022-12-28] MEDS ORDERED: KETOROLAC TROMETHAMINE 30 MG/1 ML VIAL ONE (12:11)
== END 2022-12-28 12:21 | disposition home or self-care (01) ==
LOC: JERFT 11:08
PROC: 3E0233Z Introduction of Anti-inflammatory into Muscle, Percutaneous Approach (ICD-10-PCS; principal; 2022-12-28)
DX: M62.830 Muscle spasm of back (principal)
CPT/HCPCS: 99284-25

== ENCOUNTER 2023-07-19 13:04 | Emergency (ER) | payer BC, OTHER ==
[2023-07-19 13:15] VITALS: BP 111/77; PULSE 77; RESP 16; TEMP 98.7; BMI 26.2
[2023-07-19] MEDS ORDERED: ACETAMINOPHEN 325 MG TABLET (FP) PO ONE (14:29)
== END 2023-07-19 15:06 | disposition home or self-care (01) ==
LOC: JERFT 13:04
DX: R05.9 Cough, unspecified (principal); M79.10 Myalgia, unspecified site; R06.7 Sneezing; R53.83 Other fatigue; J06.9 Acute upper respiratory infection, unspecified; Z20.822 Contact with and (suspected) exposure to COVID-19
CPT/HCPCS: 0241U-QW; 99283-25

== ENCOUNTER 2024-04-07 20:55 | Emergency (ER) | payer BC ==
[2024-04-07 21:08] VITALS: BP 122/74; PULSE 70; RESP 18; TEMP 98.6; BMI 28.3
[2024-04-07] MEDS: ALBUTEROL SO4 2.5/IPRATROPIUM 0.5 INH SOL 3 ML VIAL.NEB. NEB ONE (22:09)
[2024-04-07] MEDS ORDERED: ACETAMINOPHEN 325 MG TABLET (FP) ONE (22:15)
[2024-04-07] MEDS: ACETAMINOPHEN 325 MG TABLET (FP) PO ONE (22:16)
[2024-04-07] MEDS: BENZONATATE 200 MG CAPSULE PO ONE (22:31)
== END 2024-04-07 22:58 | disposition home or self-care (01) ==
LOC: JERFT 20:55
PROC: 3E0F7GC Introduction of Other Therapeutic Substance into Respiratory Tract, Via Natural or Artificial Opening (ICD-10-PCS; principal; 2024-04-07)
DX: R05.3 Chronic cough (principal); Z20.822 Contact with and (suspected) exposure to COVID-19
CPT/HCPCS: 0241U-QW; 99283-25